=== PATIENT | male | born 1935 | race Caucasian/White ===

== ENCOUNTER → 2016-04-24 | Outpatient (CLI) | payer MEDICARE, OTHER ==
[~2016-04-24] MED LIST: ALBUTEROL SULFATE 2.5 MG/3 ML VIAL NEB ONE
== END ==
LOC: RESP 09:48
PROVIDERS: ATTEND Family Medicine
DX: J44.1 Chronic obstructive pulmonary disease with (acute) exacerbation (principal); J06.9 Acute upper respiratory infection, unspecified
CPT/HCPCS: 94060; J7611

== ENCOUNTER → 2016-09-01 | Outpatient (CLI) | payer MEDICARE, OTHER ==
--- NOTE | 2016-09-01 14:45 | CT ---
EXAM DESCRIPTION: Chest w/o Contrast CLINICAL HISTORY: 81 years, Male, COPD COMPARISON: None TECHNIQUE: Thin-section noncontrast axial CT images are obtained according to our protocol. Reconstructed MPR images are created and reviewed as well. This exam was performed according to our departmental dose-optimization program, which includes automated exposure control, adjustment of the mA and/or kV according to patient size and/or use of iterative reconstruction technique. FINDINGS: 4 mm subpleural left lower lobe indeterminate but likely benign pulmonary nodule observed. Minor scarring in the lingula. Minor scarring right posterior lung base. Extensive coronary vascular calcification noted. Heart size normal. No pathologic lymphadenopathy observed. IMPRESSION: 1. 4 mm subpleural nodule left lung base requires follow-up per Fleischner criteria as noted below 2017 Fleischner Society Recommendations for Single Solid Lung Nodule Follow-Up based on size (average of long- and short-axis diameters) <6 mm Low-Risk Patient: No routine follow-up <6 mm High-Risk Patient: Optional CT at 12 months 6-8 mm Low-Risk Patient: CT at 6-[address] at 18-24 months 6-8 mm High-Risk Patient: CT at 6-[address] at 18-24 months >8 mm Low-Risk Patient: Consider CT, PET/CT or tissue sampling at 3 months >8 mm High-Risk Patient: Same as for low-risk patient Electronically signed by: Jone Green MD 09/01/2016 2:44 PM CDT
== END | disposition home or self-care (01) ==
LOC: CT 10:25
PROVIDERS: ATTEND Internal Medicine
DX: J44.9 Chronic obstructive pulmonary disease, unspecified (principal)

== ENCOUNTER → 2017-01-13 | Outpatient (CLI) | payer MEDICARE, OTHER | END | disposition home or self-care (01) | LOC: GMAB 10:48 | PROVIDERS: ATTEND Family Medicine | DX: Z12.5 Encounter for screening for malignant neoplasm of prostate (principal); R53.83 Other fatigue | CPT/HCPCS: 84443; G0103 ==

== ENCOUNTER → 2017-08-27 | Outpatient (CLI) | payer MEDICARE, OTHER ==
--- NOTE | 2017-08-27 17:50 | CT ---
EXAM DESCRIPTION: Chest w/o Contrast CLINICAL HISTORY: 82 years, Male, copd COMPARISON: Previous study September 01, 2016 TECHNIQUE: Thin-section noncontrast axial CT images are obtained according to our protocol. Reconstructed MPR images are created and reviewed as well. FINDINGS: Lungs: No consolidating pulmonary infiltrate or groundglass infiltrate. Minimal discoid atelectasis in the right lower lobe, right middle lobe and lingula. No worrisome pulmonary mass or nodule. There are moderately severe centrilobular emphysematous changes predominantly in the upper lobes. Subpleural bullae and blebs are more prominent in the lower lobes. No significant pulmonary fibrosis. 2 mm nodule in the lateral segment basal segment left lower lobe seen on image 91, series 4. Subpleural nodule in the right lower lobe measures 4 mm. Compared to previous study, the left lower lobe nodule appears stable. The right lower lobe nodule appears new or larger. This could be followed according to recommendations below. Mediastinum: Lymph nodes are normal in size. Normal vascular contours. Heart size is normal with no pericardial effusion. Coronary calcification is present. Chest wall/axilla: No mass or adenopathy. Lower neck/supraclavicular: No mass or adenopathy. Upper abdomen: Unremarkable upper abdominal viscera except for small right lobe liver cyst 1.5 cm. Coronal and sagittal reformatted images confirm the findings. IMPRESSION: Moderately severe emphysematous changes in both lungs. Small nodules 2 mm and 4 mm in the lower lobes. See recommendations for follow-up below. 2017 Fleischner Society Recommendations for Multiple Solid Lung Nodules Follow-Up base on size (average of long- and short-axis diameters). Use most suspicious nodule for followup. Nodule Size <6 mm Low-Risk Patient: No routine follow-up Nodule Size <6 mm High-Risk Patient: Optional CT at 12 months This exam was performed according to our departmental dose-optimization program, which includes automated exposure control, adjustment of the mA and/or kV according to patient size and/or use of iterative reconstruction technique. Total DLP equals 481.6 mGycm. Electronically signed by: Sergio Car MD 08/27/2017 5:48 PM CDT
== END ==
LOC: CT 10:28
PROVIDERS: ATTEND Internal Medicine
DX: J44.9 Chronic obstructive pulmonary disease, unspecified (principal); R06.00 Dyspnea, unspecified

== ENCOUNTER → 2017-12-22 | Outpatient (CLI) | payer MEDICARE, OTHER | LOC: GMAE 14:26 | PROVIDERS: ATTEND Family Medicine | DX: G57.93 Unspecified mononeuropathy of bilateral lower limbs (principal); G60.3 Idiopathic progressive neuropathy; M79.605 Pain in left leg; M79.604 Pain in right leg ==

== ENCOUNTER → 2017-12-23 | Outpatient (CLI) | payer MEDICARE, OTHER ==
--- NOTE | 2017-12-23 14:42 | US ---
EXAM DESCRIPTION: Extremity,Lower Adán Arteries: Ultrasound. 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 TECHNIQUE: Doppler evaluation of the bilateral lower extremity arterial flow waveforms and velocities. FINDINGS: Arterial waveforms in the right lower extremity are triphasic in the right common femoral artery and right dorsalis pedis artery. Remaining arteries are biphasic. Arterial waveforms in the left lower extremity are triphasic from the left common femoral artery through the left popliteal artery. Remaining arteries are biphasic.. Comments: Velocities are relatively symmetric bilaterally, except for decrease in the left posterior tibial artery. IMPRESSION: 1. Bilateral lower extremity Doppler arterial waveforms show no evidence of significant atherosclerotic occlusive disease. 2. Left posterior tibial artery velocity approximately 40% lower than the contralateral right vessel which could indicate early occlusion. 3. If these findings are discordant with clinical findings, consider CTA of the lower extremities. Electronically signed by: Flakito Phillips MD 12/23/2017 2:40 PM CDT
== END ==
LOC: US 10:06
PROVIDERS: ATTEND Family Medicine
DX: G60.3 Idiopathic progressive neuropathy (principal); G57.93 Unspecified mononeuropathy of bilateral lower limbs; M79.604 Pain in right leg; M79.605 Pain in left leg

== ENCOUNTER → 2018-09-15 | Outpatient (CLI) | payer MEDICARE, OTHER ==
--- NOTE | 2018-09-16 13:03 | CT ---
Study: CT Chest. Indication: COPD Technique: CT imaging of the chest obtained without intravenous administration of contrast. This exam was performed according to our departmental dose-optimization program, which includes automated exposure control, adjustment of the mA and/or kV according to patient size and/or use of iterative reconstruction technique. Comparison: August 27, 2017. Findings: Atherosclerotic vessels, aorta, coronary arteries. Heart size normal. No pathologically enlarged mediastinal or hilar lymphadenopathy. Tiny cyst versus hemangioma within the central right hepatic lobe suspected and appear stable. Degenerative changes of the spine noted. Mild emphysema. No consolidation, pleural effusion, or pneumothorax. Image 87, stable 2 mm noncalcified left lower lobe pulmonary nodule. No new consolidation, pleural effusion, or pneumothorax. Impression: Stable noncalcified pulmonary nodules. No additional follow-up of these nodules acquired. These can be classified as benign. Mild emphysema. Atherosclerosis. Electronically signed by: Varinder Smith MD 09/16/2018 1:01 PM CDT
== END ==
LOC: CT 13:19
PROVIDERS: ATTEND Internal Medicine
DX: J44.9 Chronic obstructive pulmonary disease, unspecified (principal); J30.9 Allergic rhinitis, unspecified; R91.1 Solitary pulmonary nodule; R06.09 Other forms of dyspnea

== ENCOUNTER → 2019-03-24 | Outpatient (CLI) | payer MEDICARE, OTHER | LOC: GMAE 10:37 | PROVIDERS: ATTEND Family Medicine | DX: Z12.5 Encounter for screening for malignant neoplasm of prostate (principal); Z79.899 Other long term (current) drug therapy | CPT/HCPCS: 84443; G0103 ==

== ENCOUNTER → 2020-01-23 | Outpatient (CLI) | payer MEDICARE, OTHER ==
--- NOTE | 2020-01-23 15:45 | CT ---
PROVIDED CLINICAL HISTORY/REASON FOR EXAM: PAIN IN RIGHT LEG TECHNIQUE: Volumetric CT angiographic data was obtained of the abdomen, pelvis, and lower extremities following the administration of IV contrast utilizing the CT angiography protocol. Multiplanar reformats. 3-D MIP images also submitted. This exam was performed according to our departmental dose-optimization program, which includes automated exposure control, adjustment of the mA and/or kV according to patient size and/or use of iterative reconstruction technique. COMPARISON STUDY: None available. FINDINGS: The visualized liver, spleen, pancreas and adrenal glands are unremarkable. The gallbladder is nondistended. Symmetric renal parenchymal enhancement. No hydronephrosis. No urolithiasis. Unremarkable bladder. Scattered colonic diverticula without focal inflammatory change. No evidence of bowel obstruction. No findings to suggest appendicitis. No adenopathy. No focal fluid collection. No free air. VASCULATURE Mild diffuse atherosclerotic disease. Normal caliber abdominal aorta. The origins of the celiac, SMA, ARACELY and renal arteries are widely patent. Right Common iliac: No hemodynamically significant stenosis. External iliac: No hemodynamically significant stenosis. Internal iliac: Segmental 50% stenosis spanning a distance of 1.4 cm. Left Common iliac: Focal 75% stenosis spanning a distance of 0.5 cm. Segmental dissection spanning a distance of 2.3 cm. External iliac: No hemodynamically significant stenosis. Internal iliac:No hemodynamically significant stenosis. RIGHT LOWER EXTREMITY: Common femoral: 50% segmental stenosis spanning a distance of 1.1 cm. Superficial femoral: No hemodynamically significant stenosis. Profunda femoral: No hemodynamically significant stenosis. Popliteal: No hemodynamically significant stenosis. Run off: High origin of the posterior tibial artery. Mild scattered disease in the anterior tibial artery. LEFT LOWER EXTREMITY: Common femoral: 50-75% focal stenosis. Superficial femoral: 75% focal stenosis spanning a distance of 3.6 cm. Profunda femoral: No hemodynamically significant stenosis. Popliteal: No hemodynamically significant stenosis. Run off: Normal three vessel runoff. IMPRESSION: 1. 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 2. Normal three-vessel runoff bilaterally with scattered atherosclerotic disease and associated stenosis as above. Electronically signed by: Rudi Diaz MD 01/23/2020 3:43 PM CDT
== END ==
LOC: CT 14:50
PROVIDERS: ATTEND Family Medicine
DX: I70.203 Unspecified atherosclerosis of native arteries of extremities, bilateral legs (principal); I77.1 Stricture of artery; I77.72 Dissection of iliac artery; Z79.899 Other long term (current) drug therapy

== ENCOUNTER → 2020-03-27 | Outpatient (CLI) | payer MEDICARE, OTHER ==
--- NOTE | 2020-03-27 20:41 | MRI ---
EXAM DESCRIPTION: Lumbar Spine w/o Contrast : Magnetic Resonance Imaging. CLINICAL HISTORY: RADICULOPATHY COMPARISON: MRI scan of the lumbar spine without contrast August 2009. TECHNIQUE: Multiplanar, multiple standard sequences, non contrast MRI, lumbar spine. FINDINGS: L5-S1: The disc is well visualized on axial T2 series 501, image 3. This desiccation and minimal disc space loss posterior. Anterior calcification or gas formation in the disc. This has progressed since the prior study. No posterior bulge. Hypertrophic changes in the posterior flavum ligaments and facet joints (canal elements) more left than right. Canal patent. Mild narrowing of the left foramen and moderate narrowing of the right foramen. L4-L5: Moderate endplate reactive changes anteriorly, in the midline and left side of the disc space. Schmorl's nodes in the endplates associated with these changes. Disc spur complex encroaching on the left foramen and abutting the left L4 nerve. This has progressed since the prior study. Minimal disc space loss on the right with right foramen patent. Hypertrophic changes in the canal elements with canal patent. L3-L4: Disc desiccation and minimal disc space loss. Mild endplate reactive changes in the midline with Schmorl's nodes inferior L3 endplate. Moderate hypertrophic changes of the canal elements encroaching on the posterior lateral thecal sac. AP canal diameter 8 millimeters. Mild narrowing of the right foramen and borderline left foraminal stenosis. Foraminal and canal stenosis have progressed since the prior study. L2-L3: Disc desiccation and disc space loss. Schmorl's nodes superior and inferior endplates. Moderate endplate reactive changes anteriorly and on the right. Disc spur complex narrowing the right foramen and posterior canal. Abutting the right L2 nerve in the foramen. Hypertrophic changes in the canal elements. Disc spur complex in the canal encroaching on the right subarticular recess and the right L3 nerve. AP canal diameter 7 mm. This has progressed since the prior study. L1-L2: Disc desiccation and disc space loss right side. Anterior and posterior bulging. 2 mm grade 1 retrolisthesis. Right-sided grade 1 endplate reactive changes with disc bulge into the right foramen. Moderate narrowing of the foramen. Endplate changes were not present on the prior study. Mild narrowing of the left foramen. Minimal hypertrophic changes in the canal elements. AP canal diameter 12 mm. T12-L1: Disc desiccation and disc space loss. Grade 1 retrolisthesis. Anterior disc bulge and endplate ridging. No posterior bulging. Minimal hypertrophic changes in the canal elements. Canal is patent. Bilateral foramina are patent. Disc space loss is increased since the prior study. L2-L3 levoscoliosis. Paravertebral soft tissues posterior fatty muscle atrophy.. Distal cord normal signal and caliber. Otherwise normal marrow signal in the remaining vertebral bodies and the posterior elements. Vertebral bodies are not compressed at any level. IMPRESSION: 1. Multiple levels of disc desiccation, endplate spondylosis, posterior facet and posterior ligament degenerative hypertrophy, and spondylosis. Significant progression of canal and foraminal narrowing and stenosis and nerve impingement since the prior study. 2. Spondylosis on the right and posteriorly at L2-L3 with disc spur complex encroaching on the right foramen the canal, and the right subarticular recess. Possible compromise right L3 nerve. Mild to moderate central canal stenosis. These findings are progressive since the prior study. 3. Please refer to FINDINGS for discussion of results at specific disc space levels. Electronically signed by: Flakito Phillips MD 03/27/2020 8:40 PM [facility]
== END ==
LOC: MRI 07:51
PROVIDERS: ATTEND Family Medicine
DX: M51.16 Intervertebral disc disorders with radiculopathy, lumbar region (principal); M47.26 Other spondylosis with radiculopathy, lumbar region; M25.78 Osteophyte, vertebrae; M48.061 Spinal stenosis, lumbar region without neurogenic claudication; M24.28 Disorder of ligament, vertebrae; N39.0 Urinary tract infection, site not specified; Z12.5 Encounter for screening for malignant neoplasm of prostate; Z79.899 Other long term (current) drug therapy; M41.9 Scoliosis, unspecified
CPT/HCPCS: 72148; 84443; G0103